=== PATIENT | female | born 1965 | race Caucasian/White ===

== ENCOUNTER → 2016-08-06 | Outpatient (CLI) | payer OTHER | END | disposition home or self-care (01) | LOC: C.PAPS 10:07 | PROVIDERS: ATTEND Obstetrics & Gynecology | DX: Z12.4 Encounter for screening for malignant neoplasm of cervix (principal) ==

== ENCOUNTER → 2017-03-26 | Outpatient (CLI) | payer OTHER ==
[2017-03-26 14:34] LABS: CHOLESTEROL/HDL RATIO 2.8; THYROID STIMULATING HORMONE 0.86 uIu/ml (0.300-4.500)
== END | disposition home or self-care (01) ==
LOC: C.LABBC 10:50
PROVIDERS: ATTEND Internal Medicine Geriatric Medicine
DX: E04.1 Nontoxic single thyroid nodule (principal); Z00.00 Encounter for general adult medical examination without abnormal findings

== ENCOUNTER → 2017-03-27 | Outpatient (CLI) | payer OTHER ==
--- NOTE | 2017-03-27 10:20 | DIAGNOSTIC IMAGING REPORT ---
SOFT TISS HEAD/NECK-THYROID CLINICAL HISTORY: 51 years-old Female with THYROID CYST. Follow-up study to assess a thyroid cyst. 3.5 cm cyst of the lower left thyroid noted on comparison study COMPARISON: Thyroid ultrasound 08/17/2015 TECHNIQUE: Multiple real time sonographic images of the thyroid were obtained accessing hadley scale appearance and color doppler flow. FINDINGS: MEASUREMENTS: Right lobe: 5.5 x 1.7 x 1.8 cm Left lobe: 6.2 x 2.8 x 2.4 cm Isthmus: 0.2 cm PARENCHYMA: The thyroid parenchymal echotexture is mildly heterogeneous. NODULES: No discrete nodule identified throughout the right thyroid. There are multiple ill-defined areas of decreased echogenicity measuring up to 2 mm suggesting colloid cysts within the right lobe of the thyroid. Hypoechoic nodule of the upper pole left thyroid measures 0.5 cm suggesting colloid cyst with areas of echogenic nonshadowing internal foci suggesting colloid. Large cyst of the mid pole left thyroid is again seen which measures up to 3.9 x 2.5 x 2.0 cm, previously measuring 3.5 x 2.4 cm. No suspicious features such as mural nodularity or associated soft tissue component. IMPRESSION: 1. Mildly heterogeneous appearance of the thyroid without suspicious nodule identified. 2. 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 Large cyst of the midpole left thyroid measuring up to 3.9 cm is stable to slightly increase in size from comparison study 08/17/2015. Again, this likely reflects a colloid cyst as well without suspicious features identified. The above report was generated using voice recognition software. It may contain grammatical, syntax or spelling errors. Electronically signed by: Jairo Seals M.D. 03/27/2017 10:19 AM Dictated Date/Time: 03/27/2017 10:13 AM
== END | disposition home or self-care (01) ==
LOC: C.ULTRBC 08:38
PROVIDERS: ATTEND Internal Medicine Geriatric Medicine
DX: E04.1 Nontoxic single thyroid nodule (principal)

== ENCOUNTER → 2017-06-25 | Outpatient (CLI) | payer OTHER ==
--- NOTE | 2017-06-25 15:08 | MAMMOGRAPHY REPORT ---
BILATERAL DIGITAL SCREENING MAMMOGRAM TOMOSYNTHESIS WITH CAD: 06/25/2017 CLINICAL HISTORY: Routine screening. Patient has no complaints. TECHNIQUE: Breast tomosynthesis in addition to standard 2D mammography was performed. Current study was also evaluated with a Computer Aided Detection (CAD) system. COMPARISON: Comparison is made to exam dated: 02/04/2007. BREAST COMPOSITION: There are scattered areas of fibroglandular density in both breasts. FINDINGS: No suspicious masses, calcifications, or areas of architectural distortion are noted in ei ther breast. There has been no significant interval change compared to prior exams. IMPRESSION: ACR BI-RADS CATEGORY 1: NEGATIVE There is no mammographic evidence of malignancy. A 1 year screening mammogram is recommended. The pa tient will receive written notification of the results. Approximately 10% of breast cancers are not detected with mammography. A negative mammographic report should not delay biopsy if a clinically suggestive mass is present. Beckie Billingsley M.D. ah/:06/25/2017 14:30:13 Snowboarder: Leeanne FELIPER, M, [facility] letter sent: Normal 1/2 BI-RADS Code: ACR BI-RADS Category 1: Negative
== END | disposition home or self-care (01) ==
LOC: C.MAMM 10:58
PROVIDERS: ATTEND Obstetrics & Gynecology
DX: Z12.31 Encounter for screening mammogram for malignant neoplasm of breast (principal)

== ENCOUNTER → 2017-09-10 | Outpatient (CLI) | payer OTHER | END | disposition home or self-care (01) | LOC: C.PAPS 13:32 | PROVIDERS: ATTEND Obstetrics & Gynecology | DX: Z12.4 Encounter for screening for malignant neoplasm of cervix (principal) ==